=== PATIENT | male | born 1990 | race African-American/Black ===

== ENCOUNTER 2018-11-30 14:44 | Emergency (ER) | payer MEDICAID ==
[~2018-11-30] VITALS: Ht 170.2 cm; Wt 68.0 kg
[~2018-11-30 14:44] MED LIST: VICODIN
[2018-11-30] MEDS ORDERED: IBUPROFEN 600MG TABLET PO ONE (18:45)
[2018-11-30 19:54] VITALS: BP 133/75
== END 2018-11-30 19:56 | disposition home or self-care (01) ==
LOC: ER 14:44
DX: M54.6 Pain in thoracic spine (principal); R07.89 Other chest pain; F12.10 Cannabis abuse, uncomplicated; Z98.890 Other specified postprocedural states
CPT/HCPCS: 71111; 72070; 99283

== ENCOUNTER 2023-02-20 14:49 | Emergency (ER) | payer MEDICAID ==
[~2023-02-20] VITALS: Ht 170.2 cm; Wt 70.5 kg
[2023-02-20] MEDS ORDERED: IBUPROFEN 600MG TABLET PO ONE (16:45)
[2023-02-20] MEDS ORDERED: AMOX1TAB16 MT (18:20)
[2023-02-20] MEDS ORDERED: IBUP-2029 MT (18:20)
[2023-02-20 18:39] VITALS: BP 132/75
== END 2023-02-20 18:41 | disposition home or self-care (01) ==
LOC: ER 14:49
DX: S02.85XA Fracture of orbit, unspecified, initial encounter for closed fracture (principal); S06.9XAA Unspecified intracranial injury with loss of consciousness status unknown, initial encounter; F12.10 Cannabis abuse, uncomplicated; Z98.890 Other specified postprocedural states; Y04.0XXA Assault by unarmed brawl or fight, initial encounter; Y93.89 Activity, other specified; Y92.89 Other specified places as the place of occurrence of the external cause; Y99.8 Other external cause status
CPT/HCPCS: 70486; 99284